=== PATIENT | male | born 1980 | race Two or more races ===

== ENCOUNTER 2022-01-23 10:15 | Emergency (ER) | payer SELFPAY ==
[~2022-01-23] VITALS: Ht 175.3 cm; Wt 86.9 kg
[2022-01-23 10:30] VITALS: BP 135/74
[2022-01-23] MEDS ORDERED: METH4TAB2 PO (10:52)
[2022-01-23] MEDS ORDERED: CYCL5TAB PO (10:52)
[2022-01-23] MEDS ORDERED: IBUP-1007 PO (10:52)
--- NOTE | 2022-01-23 10:53 | PHYS DOC ---
Past Medical History Past Surgical History: No Surgical History General Adult EDM: Chief Complaint: SHOULDER INJURY HPI: HPI: Patient is a 41 year old female who presents with 4 months of tingling and at times pain going from elbows to fingers bilaterally. States he was seen at a different facility for this before months ago and they told him he had a pinched nerve. He is a flores. He states that the other hospital the doctor gave him a shot in the nerve and it took all the pain away. Patient currently rating his discomfort an 8 out of 10. Denies focal weakness, swelling of the extremity, skin color change, skin temperature change, chest pain, shortness of air, headache, dizziness, back pain, neck pain, injury. Review of Systems: Review of Systems: Constitutional: Denies fever or chills. [] Eyes: Denies change in visual acuity. [] HENT: Denies nasal congestion or sore throat. [] Respiratory: Denies cough or shortness of breath. [] Cardiovascular: Denies chest pain or edema. [] GI: Denies abdominal pain, nausea, vomiting, bloody stools or diarrhea. [] : Denies dysuria. [] Musculoskeletal: Denies back pain or joint pain. [] Integument: Denies rash. [] Neurologic: Denies headache, focal weakness or sensory changes. + Tingling and pain in bilateral arms from elbows that goes down into the fingers [] Endocrine: Denies polyuria or polydipsia. [] Lymphatic: Denies swollen glands. [] Psychiatric: Denies depression or anxiety. [] Heart Score: C/O Chest Pain: No Allergies: Allergies: Allergies Coded Allergies Type Severity Reaction Last Updated Verified Penicillins Allergy Unknown 01/23/22 Yes Physical Exam: PE: Constitutional: Well developed, well nourished, no acute distress, non-toxic appearance. [] HENT: Normocephalic, atraumatic, bilateral external ears normal, oropharynx moist, no oral exudates, nose normal. [] Eyes: PERRLA, EOMI, conjunctiva normal, no discharge. [] Neck: Normal range of motion, no tenderness, supple, no stridor. [] Cardiovascular:Heart rate regular rhythm, no murmur [] Lungs & Thorax: Bilateral breath sounds clear to auscultation [] Abdomen: Bowel sounds normal, soft, no tenderness, no masses, no pulsatile masses. [] Skin: Warm, dry, no erythema, no rash. [] Back: No tenderness, no CVA tenderness. [] Extremities: No tenderness, no cyanosis, no clubbing, ROM intact, no edema. [] Neurologic: Alert and oriented X 3, normal motor function, normal sensory function, no focal deficits noted. Tingling and pain from elbows down into fingers bilaterally [] Psychologic: Affect normal, judgement normal, mood normal. [] Current Patient Data: Vital Signs: Vital Signs Date Time Temp Pulse Resp B/P (MAP) Pulse Ox O2 Delivery O2 Flow Rate FiO2 01/23/22 10:30 97.7 79 20 135/74 (94) 98 Room Air 97.7 EKG: EKG: [] Radiology/Procedures: Radiology/Procedures: [] Course & Med Decision Making: Course & Med Decision Making Pertinent Labs and Imaging studies reviewed. (See chart for details) See HPI. Alert and oriented x4. Ambulatory steady gait. Skin pink warm and dry. No extremity edema. Bilateral radial pulses are strong and present. Cap refill less than 2 seconds. Full strengths equal special education instructor bilaterally. Full range of motion of all the joints. No deformities. Full range of motion of the neck. He can fill sensations. He is neurologically intact. Patient given a prescription for muscle relaxer, Medrol Dosepak, ibuprofen. Patient is given resources for a follow-up doctor. [] Paulon Disclaimer: Dragon Disclaimer: This electronic medical record was generated, in whole or in part, using a voice recognition dictation system. Departure Departure Impression: Primary Impression: Cervical radiculopathy Disposition: HOME / SELF CARE / HOMELESS Condition: STABLE Referrals: NO PCP (PCP) SHARON HERNANDEZ II, MD Patient Instructions: Cervical Radiculopathy Additional Instructions: Follow-up with an orthopedic or primary care physician. Take medication as prescribed and with food. If you start having swelling in one of your extremities or weakness return emergency room. Scripts Cyclobenzaprine Hcl (CYCLOBENZAPRINE HCL) 5 Mg Tablet 1 TAB PO TID, #30 TAB Prov: CONRADO WILSON JAVA SOFTWARE ENGINEER 01/23/22 Ibuprofen (IBUPROFEN) 600 Mg Tablet 600 MG PO PRN Q6HRS PRN for INFLAMMATION, #30 TAB Prov: CONRADO WILSON APRN 01/23/22 Methylprednisolone (MEDROL) 4 Mg Tab.ds.pk 1 PKG PO UD, #1 PKG Prov: CONRADO WILSON APRN 01/23/22 CONRADO WILSON APRN Jan 23, 2022 10:53
== END 2022-01-23 11:10 | disposition home or self-care (01) ==
LOC: ER 10:15
DX: M54.12 Radiculopathy, cervical region (principal); Z88.0 Allergy status to penicillin
CPT/HCPCS: 99283

== ENCOUNTER 2022-02-09 13:31 | Emergency (ER) | payer SELFPAY ==
[~2022-02-09] VITALS: Ht 175.3 cm; Wt 84.8 kg
[~2022-02-09 13:31] MED LIST: CYCL5TAB PO; IBUP-1007 PO; METH4TAB2 PO
[2022-02-09] MEDS ORDERED: KETOROLAC 60 MG/2 ML VIAL. IM ONE (15:00)
[2022-02-09] MEDS ORDERED: TRIAMCINOLONE PRES.FREE 40 MG/ML VIAL. IM ONE (15:00)
--- NOTE | 2022-02-09 15:27 | RAD ---
XR CHEST 1V History: Reason: Chest pain / Spl. Instructions: / History: Comparison: None. Findings: No consolidation or pleural effusion. Normal heart size. No pneumothorax. Impression: 1. No acute cardiopulmonary process. Electronically signed by: Codey Rivera DO (02/09/2022 3:25 PM) [id number]
[2022-02-09 15:42] LABS: BASO # 0.1 x10^3/uL (0.0-0.2); BASO % 1 % (0-3); EOS # 0.1 x10^3/uL (0.0-0.7); EOS % 1 % (0-3); HEMATOCRIT 43.8 % (39.0-53.0); HEMOGLOBIN 15.2 g/dL (13.0-17.5); LYMPH % 33 % (24-48); MEAN CORPUSCULAR HEMOGLOBIN 29 pg (25-35); MEAN CORPUSCULAR HGB CONC 35 g/dL (31-37); MEAN CORPUSCULAR VOLUME 83 fL (79-100); MONO # 0.6 x10^3/uL (0.0-1.1); MONO % 7 % (0-9); NEUT # 5.3 x10^3/uL (1.8-7.7); NEUT % 58 % (31-73); PLATELET COUNT 279 x10^3/uL (140-400); RED BLOOD COUNT 5.31 x10^6/uL (4.30-5.70); RED CELL DISTRIBUTION WIDTH 12.5 % (11.5-14.5); WHITE BLOOD COUNT 9.1 x10^3/uL (4.0-11.0)
[2022-02-09 15:57] LABS: CALCIUM 9.3 mg/dL (8.5-10.1); CREATININE 0.9 mg/dL (0.7-1.3); GFR 92.5; POTASSIUM 3.5 mmol/L (3.5-5.1)
[2022-02-09 16:03] LABS: ALBUMIN 4.6 g/dL (3.4-5.0); ALBUMIN/GLOBULIN RATIO 1.1 (1.0-1.7); TOTAL BILIRUBIN 0.7 mg/dL (0.2-1.0); TOTAL PROTEIN 8.7 g/dL (6.4-8.2)
[2022-02-09] MEDS ORDERED: IBUP-1007 PO (17:09)
[2022-02-09] MEDS ORDERED: CYCL10TA19 PO (17:09)
[2022-02-09] MEDS ORDERED: PRED20TA PO (17:09)
--- NOTE | 2022-02-09 17:09 | PHYS DOC ---
Past Medical History Past Surgical History: No Surgical History Smoking Status: Former Smoker Alcohol Use: None General Adult EDM: Chief Complaint: UPPER EXTREMITY PAIN HPI: HPI: Patient is a 41-year-old male who presents to the emergency department complaining of left arm pain and discomfort that radiates from his shoulder blade for the past 1-1/2 months. Patient states it also hurts in his chest as well. Patient reports increased pain when he works. Patient works as a house business analysis specialist. Patient complains of a 7 out of 10 pain. States he was worked up for this at his primary care clinic doctors office a month and a half ago and was t old he had a pinched nerve. Patient denies injury to his back or left arm, patient has not taken any medications for this pain. Patient denies diaphoretic episodes, shortness of breath, chest or nasal congestion, denies fever or chills. Patient denies dizziness, syncopal or near syncopal episodes. Patient denies other physical complaints or physical concerns. Patient denies a history of sudden cardiac . States he does not take chut-cpj-xhjaukf or prescription medications at home, does have an allergy to penicillin. Patient does not know his allergy stated that he was told this by his mother when he was young. Patient denies history of smoking cigarettes, EtOH use, or illicit drug use, denies a history of IV drug use. Review of Systems: Review of Systems: 14 body systems of review of systems have been reviewed. See HPI for pertinent positives and negative responses, otherwise all other systems are negative, nonpertinent or noncontributory. Constitutional: Negative except as outlined in HPI above. Skin: Negative except as outlined in HPI above. Eyes: Negative except as outlined in HPI above. HENT: Negative except as outlined in HPI above. Respiratory: Negative except as outlined in HPI above. Cardiovascular: Negative except as outlined in HPI above. GI: Negative except as outlined in HPI above. : Negative except as outlined in HPI above. Musculoskeletal: Negative except as outlined in HPI above. Integument: Negative except as outlined in HPI above. Neurologic: Negative except as outlined in HPI above. Endocrine: Negative except as outlined in HPI above. Lymphatic: Negative except as outlined in HPI above. Psychiatric: Negative except as outlined in HPI above. Heart Score: C/O Chest Pain: Yes HEART Score for Chest Pain: HEART Score for Chest Pain Response (Comments) Value History Slighlty/Non-Suspicious 0 ECG Normal 0 Age < 45 0 Risk Factors No Risk Factors 0 Troponin < Normal Limit 0 Total 0 Risk Factors: Risk Factors: DM, Current or recent (<one month) smoker, HTN, HLP, family hi story of CAD, obesity. Risk Scores: Score 0 - 3: 2.5% MACE over next 6 weeks - Discharge Home Score 4 - 6: 20.3% MACE over next 6 weeks - Admit for Clinical Observation Score 7 - 10: 72.7% MACE over next 6 weeks - Early Invasive Strategies Current Medications: Current Medications Medications (Trade) Dose Ordered Sig/Ivis Start Time Stop Time Status Last Admin Dose Admin Ketorolac Tromethamine (Toradol Im) 60 mg 1X ONCE 02/09/22 15:00 02/09/22 15:01 DC 02/09/22 15:06 60 MG Triamcinolone Acetonide (Kenalog-40) 40 mg 1X ONCE 02/09/22 15:00 02/09/22 15:01 DC 02/09/22 15:06 40 MG Allergies: Allergies: Allergies Coded Allergies Type Severity Reaction Last Updated Verified Penicillins Allergy Intermediate 01/23/22 Yes Physical Exam: PE: Constitutional: Well developed, well nourished, no acute distress, non-toxic appearance. 41-year-old male in no apparent distress. HENT: Normocephalic, atraumatic. Eyes: Conjunctiva normal, no discharge. Neck: Normal range of motion, no stridor. Cardiovascular: No cyanosis appreciated, distal cap refill less than 2 seconds. Regular rate and rhythm, heart sounds S1-S2 with auscultation. Lungs & Thorax: Patient is in no respiratory distress, no audible adventitious lung sounds appreciated. Lung sounds clear to auscultation all lung kerr. Increased pain to palpation along muscular structures of anterior left-sided thorax lateral aspect. No crepitus, no subcu air, no deformities, equal rise and fall of chest with breathing. Abdomen: Nontender, no abnormalities noted. Skin: Warm, dry, no erythema, no rash. Back: No tenderness, no deformities. Extremities: No tenderness, no cyanosis, no clubbing, ROM intact, no edema. Distal cap refill less than 2 seconds equal bilateral upper extremities, +2 radial pulses bilateral upper extremities. No swelling or edema of the extremities appreciated. Neurologic: Alert and oriented X 3, normal motor function, normal sensory function, no focal deficits noted. Psychologic: Affect normal, judgement normal, mood normal. Current Patient Data: Labs: Laboratory Tests Test 02/09/22 15:28 White Blood Count 9.1 x10^3/uL (4.0-11.0) Red Blood Count 5.31 x10^6/uL (4.30-5.70) Hemoglobin 15.2 g/dL (13.0-17.5) Hematocrit 43.8 % (39.0-53.0) Mean Corpuscular Volume 83 fL (79-100) Mean Corpuscular Hemoglobin 29 pg (25-35) Mean Corpuscular Hemoglobin Concent 35 g/dL (31-37) Red Cell Distribution Width 12.5 % (11.5-14.5) Platelet Count 279 x10^3/uL (140-400) Neutrophils (%) (Auto) 58 % (31-73) Lymphocytes (%) (Auto) 33 % (24-48) Monocytes (%) (Auto) 7 % (0-9) Eosinophils (%) (Auto) 1 % (0-3) Basophils (%) (Auto) 1 % (0-3) Neutrophils # (Auto) 5.3 x10^3/uL (1.8-7.7) Lymphocytes # (Auto) 3.0 x10^3/uL (1.0-4.8) Monocytes # (Auto) 0.6 x10^3/uL (0.0-1.1) Eosinophils # (Auto) 0.1 x10^3/uL (0.0-0.7) Basophils # (Auto) 0.1 x10^3/uL (0.0-0.2) D-Dimer (Vanessa) < 0.27 ug/mlFEU Sodium Level 137 mmol/L (136-145) Potassium Level 3.5 mmol/L (3.5-5.1) Chloride Level 101 mmol/L (98-107) Carbon Dioxide Level 28 mmol/L (21-32) Anion Gap 8 (6-14) Blood Urea Nitrogen 15 mg/dL (8-26) Creatinine 0.9 mg/dL (0.7-1.3) Estimated GFR (Cockcroft-Gault) 92.5 BUN/Creatinine Ratio 17 (6-20) Glucose Level 90 mg/dL (70-99) Calcium Level 9.3 mg/dL (8.5-10.1) Total Bilirubin 0.7 mg/dL (0.2-1.0) Aspartate Amino Transferase (AST) 38 U/L (15-37) H Alanine Aminotransferase (ALT) 85 U/L (16-63) H Alkaline Phosphatase 83 U/L (46-116) Troponin I High Sensitivity 4 ng/L (4-75) Total Protein 8.7 g/dL (6.4-8.2) H Albumin 4.6 g/dL (3.4-5.0) Albumin/Globulin Ratio 1.1 (1.0-1.7) Laboratory Tests 02/09/22 15:28 Laboratory Tests 02/09/22 15:28 Vital Signs: Vital Signs Date Time Temp Pulse Resp B/P (MAP) Pulse Ox O2 Delivery O2 Flow Rate FiO2 02/09/22 13:41 98.5 104 18 135/74 (94) 96 Room Air 98.5 EKG: EKG: EKG performed at 1440 by ED nursing staff shows a normal sinus rhythm without other ectopy, heart rate 80 bpm, CT interval 0.170, QTc interval 0.407, no acute STEMI, no ACS, no acute ischemia appreciated, EKG interpreted by ED attending physician Dr. Mcdonough. Radiology/Procedures: Radiology/Procedures: REASON: Chest pain PROCEDURE: CHEST AP ONLY XR CHEST 1V History: Reason: Chest pain / Spl. Instructions: / History: Comparison: None. Findings: No consolidation or pleural effusion. Normal heart size. No pneumothorax. Impression: 1. No acute cardiopulmonary process. Electronically signed by: Codey Rivera DO (02/09/2022 3:25 PM) [id number] Course & Med Decision Making: Course & Med Decision Making Pertinent Labs and Imaging studies reviewed. (See chart for details) 41-year-old male, vital signs reviewed, presents to the emergency department complaining of left upper extremity discomfort for the past month and a half. Patient's physical examination consistent with cervical radiculopathy affecting the left upper extremity. However patient is 41 years old and does complain of chest discomfort, will order steroid injection, Toradol injection, CBC, CMP, D- dimer, high-sensitivity troponin I, chest x-ray, twelve-lead EKG. Will reevaluate after period of time. Chest x-ray is unremarkable, CBC, CMP, D-dimer, high-sensitivity troponin I unremarkable and within normal limits. Reevaluation of the patient found the patient remains in no apparent distress, nontoxic in appearance, states his pain level has dropped significantly and no longer aches or throbs and has 0 pain if he does not move. Discussed with patient will order prednisone regimen, will also prescribe ibuprofen for pain, will give work excuse for the next 2 days, strict follow-up with his clinic doctor for ongoing pain management, return to ER precautions or concerns were reviewed, patient gave verbal understanding of and is amenable to ED discharge planning. IMayGouon Disclaimer: Solexant Disclaimer: This electronic medical record was generated, in whole or in part, using a voice recognition dictation system. Departure Departure Impression: Primary Impression: Cervical radiculopathy Disposition: HOME / SELF CARE / HOMELESS Condition: GOOD Referrals: NO PCP (PCP) Patient Instructions: Cervical Radiculopathy Additional Instructions: You were seen in the emergency department for pain down your left arm that stems from your neck. You were given pain medication today in the emergency department along with a steroid which you reported helped with your symptoms. A cardiac work-up to include an EKG, lab work, chest x-ray was done today related to your complaint of chest pain, these were all reassuring as all labs x-rays EKGs. As we discussed, I am starting you on a short regimen of prednisone, please take as directed until complete, I am also writing a prescription for ibuprofen, please take up to 4 times a day as needed for pain. Please follow-up with your clinic doctor for ongoing pain management. Return to the emergency department for worsening symptoms or other concerns. Thank you for visiting our Emergency Department. It was a pleasure taking care of you today in the emergency department and we appreciate you trusting us with your care. If any additional problems come up don't hesitate to return to visit us. Please follow up with your primary care provider so they can plan additional care if needed and know about the problem that you had. If symptoms worsen come back to the Emergency Department. Any concerning symptoms that start such as chest pain, shortness of air, weakness or numbness on one side of the body, running high fevers or any other concerning symptoms return to the ER. [address] [address] [place] [address] [facility] [address] [place] [address] [facility] [address] [place] [address] [facility] [address] [place] [address] [facility] [address] [place] [address] [facility] [address] [place] [address] [address] [place] [address] [facility] [address] [place] [address] [facility] [address] [place] [address] [facility] [address] [place] [address] Scripts Cyclobenzaprine Hcl (CYCLOBENZAPRINE HCL) 10 Mg Tablet 10 MG PO TID, #12 TAB 0 Refills Prov: YARIEL RAMIREZ APRN 02/09/22 Prednisone (PREDNISONE) 20 Mg Tablet 1 TAB PO DAILY, #15 TAB 0 Refills Take 2 tablets once a day for 5 days, then reduce to 1 tablet once a day for an additional 5 days. Prov: YARIEL RAMIREZ APRN 02/09/22 Ibuprofen (IBUPROFEN) 600 Mg Tablet 600 MG PO PRN Q6HRS PRN for INFLAMMATION, #60 TAB 0 Refills Prov: YARIEL RAMIREZ APRN 02/09/22 YARIEL RAMIREZ APRN Feb 09, 2022 17:09
[2022-02-09 17:25] VITALS: BP 131/85
--- NOTE | 2022-02-10 08:00 | EKG ---
[facility] [address] [place] [address] Test Date: 2022-02-09 Test Time: 06:30:41 Pat Name: SREEKANTH CONTRERAS Department: Room: Gender: M [employer]visor [employer]: : 1980 Requested By: YARIEL RAMIREZ Order Number: [id number] Reading MD: Measurements Intervals Saxton Rate: 80 P: 33 ME: 170 QRS: -6 QRSD: 104 T: 13 QT: 350 QTc: 407 Interpretive Statements SINUS RHYTHM LEFTWARD AXIS OTHERWISE NORMAL ECG RI6.02 No previous ECG available for comparison
== END 2022-02-09 17:32 | disposition home or self-care (01) ==
LOC: ER 13:31
DX: Z87.891 Personal history of nicotine dependence (principal); M54.12 Radiculopathy, cervical region; Z88.0 Allergy status to penicillin
CPT/HCPCS: 36415; 71045; 80053; 84484; 85025; 85379; 93005; 96372; 99285; J1885; J3301